=== PATIENT | female | born 1940 | race Caucasian/White ===

== ENCOUNTER 2018-08-23 07:09 | Day surgery (SDC) | payer MEDICARE, OTHER ==
[2018-08-18 15:31] LABS: BASOPHILS # (AUTO) 0.1 X10'3 (0-0.2); BASOPHILS % (AUTO) 0.8 % (0-1); EOSINOPHILS # (AUTO) 0.4 X10'3 (0-0.9); EOSINOPHILS % (AUTO) 6.5 % (0-6); LYMPHOCYTES # (AUTO) 1.4 X10'3 (1.1-4.8); LYMPHOCYTES % (AUTO) 21.6 % (21-51); MEAN CORPUSCULAR HEMOGLOBIN 29.3 PG (27.0-31.0); MEAN CORPUSCULAR HGB CONC 33.5 g/dL (33.0-36.5); MEAN CORPUSCULAR VOLUME 87.4 FL (78-98); MONOCYTES # (AUTO) 0.6 X10'3 (0-0.9); MONOCYTES % (AUTO) 8.7 % (2-12); NEUTROPHILS # (AUTO) 4.1 X10'3 (1.8-7.7); NEUTROPHILS % (AUTO) 62.4 % (42-75); PRE OP HEMATOCRIT 33.5 % (35.0-45.0); PRE OP HEMOGLOBIN 11.2 g/dL (12.0-16.0); PRE OP PLATELET COUNT 231 X10'3 (140-440); RED BLOOD COUNT 3.83 X10'6 (4.20-5.60); RED CELL DISTRIBUTION WIDTH 13.2 % (11.5-14.5)
[2018-08-18 15:49] LABS: ALBUMIN 3.5 G/DL (3.4-5.0); ALKALINE PHOSPHATASE 69 IU/L (46-116); BLOOD UREA NITROGEN 35 MG/DL (7-18); BUN/CREATININE RATIO 29.2 (6.6-38.0); CALCIUM 8.7 MG/DL (8.5-10.1); CHLORIDE 107 MMOL/L (99-107); PRE OP ALT 16 U/L (30-65); PRE OP ANION GAP 9 (8-16); PRE OP AST 15 U/L (10-37); PRE OP BILIRUB, TOTAL 0.3 MG/DL (0.0-1.0); PRE OP GLUCOSE 103 MG/DL (70-104); PRE OP POTASSIUM 4.1 MMOL/L (3.4-5.1); PRE OP SODIUM 141 MMOL/L (135-145); TOTAL CARBON DIOXIDE 25.1 MMOL/L (24-32); TOTAL PROTEIN 6.9 G/DL (6.4-8.2); eGFR 44 ML/MIN
[~2018-08-23] VITALS: Ht 152.4 cm; Wt 76.2 kg
[2018-08-23] VITALS (12 sets, daily range): BP systolic 102–166; BP diastolic 51–96
[~2018-08-23 07:09] MED LIST: BENA1TAB19 PO; BENA20TA2 PO; BUSP10TA3 PO; MELO-102 PO; ONDA4TAB11 PO; SIMV40TA4 PO
[2018-08-23] MEDS ORDERED: cefazolin/dext.iso 2gm/100 ML IV ONE (07:15)
[2018-08-23] MEDS ORDERED: famotidine 20mg tablet PO ONE (07:15)
[2018-08-23] MEDS ORDERED: ringers solution, lacted 1,000 ML IV SCH ×2 (07:15→09:46)
[2018-08-23] MEDS ORDERED: LIDOcaine 1% (10mg/ml) 2ml vial ONE (08:08)
[2018-08-23] MEDS ORDERED: ROPIVAcaine 0.5% (5mg/ml) 30ml vial ONE (08:12)
[2018-08-23] MEDS ORDERED: LIDOcaine 1% 30ml preserv. free vial ONE (08:12)
[2018-08-23] MEDS ORDERED: ketorolac trometh. 30mg/ml inj. ONE (08:12)
[2018-08-23] MEDS ORDERED: BUPIVAcaine/PF 2.5 mg/ml (0.25%) 30ml vial ONE (08:12)
[2018-08-23] MEDS ORDERED: fentaNYL/PF 50MCG/1 ML 2ML syringe IV PRN ×2 (09:50)
[2018-08-23] MEDS ORDERED: ondansetron/PF 4mg/2ml inj IV PRN (09:50)
[2018-08-23] MEDS ORDERED: labetalol 20mg/4ml (5mg/ml) syringe IV PRN (09:50)
[2018-08-23] MEDS ORDERED: morphine 4 MG/ML inj SYRINge IV PRN ×2 (09:50)
[2018-08-23] MEDS ORDERED: hydrALAZINE 20mg/ml inj. IV PRN (09:50)
[2018-08-23] MEDS ORDERED: fentaNYL/PF 50MCG/1 ML 2ML syringe ONE (09:54)
[2018-08-23] MEDS ORDERED: ondansetron/PF 4mg/2ml inj ONE (09:54)
[2018-08-23] MEDS ORDERED: rocuronium 10mg/ml inj IV ONE (09:54)
[2018-08-23] MEDS ORDERED: propofol inj 20 ML IV ONE (09:54)
[2018-08-23] MEDS ORDERED: LIDOcaine 2% (20mg/ml) 5ml vial ONE (09:54)
[2018-08-23] MEDS ORDERED: labetalol 20mg/4ml (5mg/ml) syringe IV ONE (10:11)
[2018-08-23] MEDS ORDERED: glycopyrrolate 0.2mg/ml inj ONE (11:02)
--- NOTE | 2018-08-23 11:16 | NUR ---
Received from OR via [facility], accompanied by Anesthesiologist DR PELAEZ and report given by Anesthesiologist. PT DROWSY, DENIES PAIN, LEFT ABDOMEN W/3 LAP SITES W/BANDAIDS CDI. Addendum: 08/23/18 at 1153 by Bijal Friend RN Amended: Links added.
[2018-08-23] MEDS ORDERED: oxyCODONE/APAP 5-325mg tablet PO ONE (12:30)
== END 2018-08-23 12:56 | disposition home or self-care (01) ==
LOC: PAS 07:09
PROVIDERS: ATTEND Surgery
DX: K42.9 Umbilical hernia without obstruction or gangrene (principal); F32.9 Major depressive disorder, single episode, unspecified; E78.5 Hyperlipidemia, unspecified; I12.9 Hypertensive chronic kidney disease with stage 1 through stage 4 chronic kidney disease, or unspecified chronic kidney disease; N18.3 Chronic kidney disease, stage 3 (moderate); M19.90 Unspecified osteoarthritis, unspecified site; F41.9 Anxiety disorder, unspecified; Z96.659 Presence of unspecified artificial knee joint; Z82.61 Family history of arthritis; Z79.899 Other long term (current) drug therapy; Z82.49 Family history of ischemic heart disease and other diseases of the circulatory system; Z72.89 Other problems related to lifestyle
CPT/HCPCS: 36415; 49652; 64488; 80053; 82948; 85025; 93005; C1781; J0690; J1885; J2001; J2270; J2405; J2704; J3010; J3490; J2795; J7120

== ENCOUNTER 2024-05-05 10:29 | Outpatient (CLI) | payer MEDICARE, MEDICAID ==
[~2024-05-05] VITALS: Ht 152.4 cm; Wt 76.7 kg
[~2024-05-05 10:29] MED LIST changes: +ONDA-103 PO; -ONDA4TAB11 PO; +SIMV-45 PO; -SIMV40TA4 PO
[2024-05-05 11:05] VITALS: PULSE 90; RESP 16; O2SAT 96
[2024-05-05 11:16] VITALS: PULSE 96; RESP 16
[2024-05-05] MEDS: albuterol 2.5 MG/3 ML nebule NEB ONE (11:23)
== END 2024-05-05 23:59 | disposition home or self-care (01) ==
LOC: RT 10:29
PROVIDERS: ATTEND Physician Assistant
DX: R06.00 Dyspnea, unspecified (principal); R94.5 Abnormal results of liver function studies
CPT/HCPCS: 94060; 94760